=== PATIENT | male | born 1995 | race Caucasian/White ===

== ENCOUNTER 2024-10-17 18:44 | Emergency (ER) | payer MEDICAID ==
[~2024-10-17] VITALS: Ht 165.1 cm; Wt 92.0 kg
[2024-10-17 19:00] VITALS: O2SAT 96
[2024-10-17] MEDS: IBUPROFEN 600MG TABLET PO STA (21:28)
[2024-10-17] MEDS ORDERED: NAPR-681 PO (22:53)
[2024-10-18 00:02] VITALS: BP 125/52; PULSE 69; RESP 16; TEMP 36.66960; O2SAT 96
== END 2024-10-18 00:05 | disposition home or self-care (01) ==
LOC: ER 19:36
DX: M79.641 Pain in right hand (principal); M25.532 Pain in left wrist; M54.50 Low back pain, unspecified; I10 Essential (primary) hypertension; V43.52XA Car driver injured in collision with other type car in traffic accident, initial encounter; Y92.410 Unspecified street and highway as the place of occurrence of the external cause; Y93.9 Activity, unspecified; Y99.8 Other external cause status
CPT/HCPCS: 72100; 73110; 73130; 99284